=== PATIENT | female | born 1980 | race Caucasian/White ===

== ENCOUNTER → 2024-01-25 15:10 | Outpatient (REF) | payer OTHER, SELFPAY | LOC: HWWDC 15:10 | PROVIDERS: ATTENDING PHYSICIAN Nurse Practitioner | DX: Z12.31 Encounter for screening mammogram for malignant neoplasm of breast (principal) | CPT/HCPCS: 77063; 77067 ==

== ENCOUNTER → 2024-07-18 13:38 | Outpatient (REF) | payer OTHER, SELFPAY | LOC: HWRCS 13:38 | PROVIDERS: ATTENDING PHYSICIAN Physician Assistant | DX: R00.2 Palpitations (principal) | CPT/HCPCS: 93306 ==

== ENCOUNTER 2024-10-02 12:17 | Emergency (ER) | payer OTHER, SELFPAY ==
[2024-10-02 12:19] VITALS: BP 141/91
[2024-10-02 12:40] LABS: % Basophils 0.7 % (0-2); % Eosinophils 0.7 % (0-6); % Immature Granulocytes 0.2 % (0-0.5); % Lymphocytes 15.9 % (20.5-51.1); % Neutrophils 76.5 % (42.2-75.2); Absolute Basophils 0.1 10^3/uL (0-0.2); Absolute Eosinophils 0.1 10^3/uL (0-0.7); Absolute Lymphocytes 1.9 10^3/uL (1.2-3.4); Absolute Monocytes 0.7 10^3/uL (0.1-0.6); Absolute Neutrophils 9.2 10^3/uL (1.4-6.5); Hematocrit 36.6 % (37.0-47.0); Mean Corp Hgb Conc. 35.5 g/dL (33.0-37.0); Mean Corpuscular Hgb 33.2 pg (27.0-31.0); Mean Corpuscular Volume 93.6 fL (81.0-99.0); Mean Platelet Volume 10.1 fL (7.4-10.4); Nucleated Red Blood Cells % 0 %; Platelet Count 301 10^3/uL (130-400); Red Blood Cell Count 3.91 10^6/uL (4.20-5.40); Red Cell Dist. Width 11.6 % (11.5-14.5); White Blood Cell Count 12.1 10^3/uL (4.8-10.8)
[2024-10-02 12:42] LABS: HCG, Urine Qualitative Screen Negative; Urine Albumin Negative (Neg - Trace); Urine Bilirubin Negative (Negative); Urine Character Clear (Clear); Urine Color Yellow; Urine Glucose Negative (Negative); Urine Ketone Negative (Negative); Urine Leukocyte Negative (Negative); Urine Nitrite Negative (Negative); Urine Occult Blood Negative (Negative); Urine Specific Gravity 1.005 (<1.030); Urine Urobilinogen Negative (Neg - 1+)
[2024-10-02 12:56] LABS: ALT (SGPT) 12 U/L (0-35); AST (SGOT) 20 U/L (14-36); Albumin 4.8 g/dl (3.5-5.0); Alkaline Phosphatase 43 U/L (38-126); Blood Urea Nitrogen 9 mg/dl (7-17); Calcium 9.7 mg/dl (8.4-10.2); Carbon Dioxide 29 mmol/L (22-30); Chloride 102 mmol/L (98-107); Glucose 103 mg/dl (70-99); Lipase 87 U/L (23-300); Potassium 3.9 mmol/L (3.5-5.1); Sodium 139 mmol/L (135-145); Total Bilirubin 0.8 mg/dl (0.2-1.3); Total Protein 7.4 g/dl (6.3-8.2); eGFR > 60.00
[2024-10-02 14:53] VITALS: BMI 23.9
[2024-10-02] MEDS: TORADOL 30 MG IV (15:03)
[2024-10-02 15:07] VITALS: BP 132/81
[2024-10-02 15:38] VITALS: BP 140/77
--- NOTE | 2024-10-02 15:41 | ED.GENMED ---
History of Present Illness
General
Chief Complaint: Abdominal Pain
Source: patient
Time Seen by Provider: 10/02/24 14:07
History of Present Illness
History of Present Illness:
44-year-old female with past medical history of GERD presenting to the emergency department for evaluation of abdominal discomfort that started last night described to be a bloating sensation that became more of a right sided lower abdominal pain
described to be colicky, waxes and wanes in intensity with the worst being about 6 out of 10, currently 2 out of 10 with no other associated symptoms including fevers, chills, rigors, nausea, vomiting, urinary symptoms or bowel changes. Patient did
not take anything for pain prior to arrival because she did not want to interfere with any potential testing or treatment that we may do here in the ER. She denies any other history of similar. Surgical history noncontributory. Social history
noncontributory.
Past History
Past History
ED Past Medical History: GERD
ED Past Surgical History: Tonsilectomy; Negative Cardiac
Social History
Tobacco: Non-smoker
Alcohol: None
Drug: None
Personal:
Living: with family
Employment: Employed
Family History
Family History: Other
Review of Systems
Review of Systems
All Other Systems: ROS reviewed and negative except as documented in HPI and ROS
Phy Exam
Physical Exam
Physical Exam:
GENERAL: Alert , in no apparent distress
EYE: clear conjunctiva b/l
HEAD: NCAT
ENT: mmm.
CARDIAC: Regular rate and rhythm .
LUNGS: Clear breath sounds bilaterally, no acute respiratory distress, no wheezes/rales/rhonchi
ABDOMEN: Soft, without focal tenderness, no r/g, no cvat
NEUROLOGICAL: Alert and oriented
SKIN: Warm and dry, skin intact.
MUSCULOSKELETAL: well perfused.
PSYCH: Normal and appropriate interaction.
Scores
Heart Failure Risk
Heart Failure Risk Score: Not Applicable
Heart Score for Chest Pain Patients
STEMI patient?: Not applicable
Withdrawal Assessment of Alcohol
Withdrawal Assessment Completed?: Not applicable
Course
Orders/Labs/Results
Orders:
Orders
10/02/24 12:22
Test Result ONCE
10/02/24 12:26
Complete Blood Count/With Diff Urgent
Comprehensive Metabolic Panel Urgent
Lipase Urgent
Urinalysis Reflex To Culture Urgent
Date Specimen was Collected: 10/02/24
Time Specimen was Collected: 12:22
Urine,Hcg qualitative screen [HCG, Urine Qualitative Screen] Urgent
Date Specimen was Collected: 10/02/24
Time Specimen was Collected: 12:22
10/02/24 14:43
CT Abd/pelvis W Iv Cont Urgent
Comment:
Reason For Exam: right flank pain
Ketorolac [Toradol] 30 mg IV NOW STA
10/02/24 15:36
US Pelvis W Transvag Combined Urgent
Reason For Exam: right lower abd pain, cyst on CT
Abnormal Lab Results
10/02/24
12:26
WBC 12.1 H 10^3/uL
(4.8-10.8)
RBC 3.91 L 10^6/uL
(4.20-5.40)
Hct 36.6 L %
(37.0-47.0)
MCH 33.2 H pg
(27.0-31.0)
Absolute Neuts (auto) 9.2 H 10^3/uL
(1.4-6.5)
Absolute Monos (auto) 0.7 H 10^3/uL
(0.1-0.6)
Neutrophils % 76.5 H %
(42.2-75.2)
Lymphocytes % 15.9 L %
(20.5-51.1)
Glucose 103 H mg/dl
(70-99)
10/02/24 12:26
10/02/24 12:26
Vital Signs
Initial and Last Documented VS:
Initial Vital Signs
Temp Pulse Resp BP Pulse Ox
98.5 F 65 18 141/91 98
10/02/24 12:19 10/02/24 12:19 10/02/24 12:19 10/02/24 12:19 10/02/24 12:19
Last Documented Vital Signs
Temp Pulse Resp BP Pulse Ox
98.5 F 82 20 140/77 100
10/02/24 15:07 10/02/24 15:07 10/02/24 15:07 10/02/24 15:38 10/02/24 15:39
MDM/Problems Addressed
Differential Diagnosis Includes:
Appendicitis, renal/ureteral colic, urinary tract infection, ovarian cyst,
MDM/Problems Addressed:
44-year-old female presenting to the emergency department for evaluation of right-sided lower abdominal pain that waxes and wanes in intensity, no other associated symptoms. Currently pain is 2 out of 10 the patient would like something to try and
prevent the pain from being so colicky. No focal tenderness on exam. Labs were initiated on arrival which does show a mild leukocytosis but otherwise unremarkable chemistry and urine. Will obtain CT scan with IV contrast to evaluate for possible
appendicitis versus renal/ureteral colic. Toradol ordered for pain control. Reassessment following
*Radiology
Radiology exam reviewed: radiology read reviewed
*Pulse Oximetry
Patient hypoxic: no
*Critical Care Note
Total Time (30-74mins, 75-104mins- exclusive of procedures): Not Applicable
Comment
Comment:
CT scan shows a suspected fibroid within the uterus as well as a 2-1/2 cm right ovarian cyst. I do suspect the ovarian cyst is the cause of patient's symptoms. Given the colicky nature of her symptoms we will still obtain an ultrasound to further
assess and ensure no torsion. Patient noted significant relief following Toradol.
Patient Management
Escalation/DeEscalation of care consider admission/obs:
Patient's ultrasound shows same as CT, no concern for torsion as there is documented blood flow and patient's pain is much improved. She does feel comfortable being discharged home. She will follow-up with primary care provider and/or [employer] for
repeat ultrasound 4 to 6 weeks to ensure resolution of the cyst. Aware of return precautions to the ER.
ED Attending Note
-
Portions of this chart may have been created with voice recognition software.� Occasional wrong word or��sound alike� substitutions may have occurred due to the inherent limitations of voice recognition software.
Discharge Plan
Departure
Patient Disposition: Home (Routine Discharge)
Date of Disposition: 10/02/24
Time of Disposition: 17:42
Patient with high blood pressure during this ER visit?: No
Discharge Problem:
Cyst of right ovary, Fibroid, uterine
Instructions: Ovarian cyst - ED discharge instructions
Prescriptions:
No Action
ibuprofen 600 MG tablet
600 mg PO Q6HPRN PRN (Reason: moderate pain/cramps) Qty: 0 0RF
Referrals:
Tameka Sparks CRNP [Family Provider] -
Interventions
Interventions:
*Risk Screen - Suicide Last Done: 10/02/24 12:19
*General Assessment Last Done: 10/02/24 12:19
*Neglect/Abuse Screening Last Done: 10/02/24 12:19
*ED- Fall Risk Assessment Last Done: 10/02/24 12:19
*ED COVID-19 Vaccine History Last Done: 10/02/24 12:19
*Nursing Disposition Last Done: 10/02/24 17:49
NK-Gbdacj-Lqngtnhgon Assessment Last Done: 10/02/24 15:07
Discharge Date and Time
Discharge Date/Time: 10/02/24 17:50
Print Language: BELARUSIAN
== END 2024-10-02 17:50 | disposition home or self-care (01) ==
LOC: EMR 12:17
PROVIDERS: Emergency Medicine; EMERGENCY PHYSICIAN Emergency Medicine; FAMILY PHYSICIAN Nurse Practitioner
DX: N83.201 Unspecified ovarian cyst, right side (principal); D25.9 Leiomyoma of uterus, unspecified; K21.9 Gastro-esophageal reflux disease without esophagitis
CPT/HCPCS: 99284; 96374; 74177; 76830; 76856; 80053; 81003; 81025; 83690; 85025; Q9967

== ENCOUNTER → 2025-01-20 14:19 | Outpatient (REF) | payer OTHER, SELFPAY | LOC: HWRAD 14:19 | PROVIDERS: ATTENDING PHYSICIAN Nurse Practitioner | DX: E04.1 Nontoxic single thyroid nodule (principal) | CPT/HCPCS: 76536 ==